=== PATIENT | male | born 1950 | race Caucasian/White ===

== ENCOUNTER 2021-08-09 13:00 | Outpatient (RCR) | payer OTHER ==
[2021-08-06 09:15] VITALS: BP 98/68; PULSE 52; TEMP 97.8
--- NOTE | 2021-08-06 12:30 | NUR ---
INT DC'd, site wrapped with coban. Pt assisted out to 's car by wheelchair.
--- NOTE | 2021-08-06 13:50 | NUR ---
Photocopy Operator Lauren notified that blood bank testing required further workup due to reactivity shown during T/C. Additional blood was drawn to be sent to [place] for further workup. Blood bank will notify HS if blood comes in this weekend so pt may be brought in to recieve blood transfusion on medical unit.
--- NOTE | 2021-08-08 08:28 | NUR ---
Attempted to contact patient this morning to have come for transfusion. Patient's number, , doesn't answer and unable to leave voicemail. Attempted to call number listed for , , and this is an incorrect number. But, the gentleman who answered knows the patient and said he's gotten numerous calls from this weekend for patient and . States if he's out and about today, he will stop and check on patient.
[2021-08-09] VITALS (9 sets, daily range): BP systolic 90–119; BP diastolic 60–88; PULSE 75–87; TEMP 97.5–98.9
[~2021-08-09] VITALS: Ht 170.2 cm; Wt 64.3 kg
[~2021-08-09 13:00] MED LIST: ASPIRIN E.C. 8181 MG PO; CHOLESTEROL MED; COREG 25MG25 MG/TAB PO; ENSURE PLUS 23237 ML PO; FLOMAX 0.40.4 MG/CAP PO; K-DUR20 MEQ PO; LIPITOR 80MG80 MG PO; MAGNESIUM200 MG PO; OSCAL 500 TAB500 MG PO; PRINIVIL20 MG PO; PROTONIX 40MG T40 MG PO; ULTRAM 50MG TAB50 MG PO; VITAMIN D31000 I1 PO; blood pressure med
--- NOTE | 2021-08-09 18:36 | NUR ---
Report to Ambar Gibbs.
== END 2021-08-09 18:41 ==
LOC: EUO 13:00
DX: D53.9 Nutritional anemia, unspecified (principal)
CPT/HCPCS: J7050; P9016

== ENCOUNTER 2021-08-31 16:37 | Inpatient (IN) | payer OTHER ==
[~2021-08-31] VITALS: Ht 170.2 cm; Wt 58.2 kg
[~2021-08-31 16:37] MED LIST changes: +MAG-OX 400400 MG/TAB PO; -MAGNESIUM200 MG PO
[2021-08-31 18:19] LABS: MEAN CELL VOLUME 96 fl (80.0-100.0); MEAN CORPUSCULAR HGB CONC 34 g/dl (33.0-37.0); MEAN PLATELET VOLUME 10.7 fl (7.4-10.4); PLATELET COUNT 294 K/mm3 (130-400); RED BLOOD COUNT 2.37 M/mm3 (4.20-5.60); REDCELL DISTRIBUTION WIDTH-CV 20.1 % (11.5-14.5)
[2021-08-31 18:20] LABS: HEMATOCRIT 22.8 % (42.0-52.0); HEMOGLOBIN 7.8 g/dl (13.5-18.0); MEAN CORPUSCULAR HEMOGLOBIN 33 pg (27-31)
[2021-08-31 18:40] LABS: ALBUMIN 3.2 gm/dL (3.4-4.8); C-REACTIVE PROTEIN 21.38 mg/dL (0.00-0.50); CALCIUM 8.9 mg/dL (8.4-10.2); CREATININE, serum 2.15 mg/dL (0.72-1.25); TOTAL PROTEIN 7.6 gm/dL (6.2-8.1)
[2021-08-31 18:55] LABS: POTASSIUM 2.9 mmol/L (3.5-4.5)
[2021-08-31 19:34] LABS: ANISOCYTOSIS 3+; BAND 26 % (0-10); HYPOCHROMIA 1+; LYMPHOCYTE 25 % (20.0-51.0); NEUTROPHILS 41 % (42.0-75.2); OVALOCYTES 1+; PLATELET ESTIMATE NORMAL (NORMAL)
[2021-09-01] VITALS (21 sets, daily range): BP systolic 79–145; BP diastolic 50–74; PULSE 73–100; TEMP 97.6–98.4
--- NOTE | 2021-09-01 01:00 | NUR ---
Admitted to medical floor from ER- DX: N/V/D, weakness, fatigue-- history of prostate/bone CA,, had first dose of chemotherapy on 08/25/21, pale, weak, B/P 95/62, Tele on, understands needs urine/stool specimens, on C.L diet.
[2021-09-01 03:26] LABS: BASO # 0.1 K/mm3 (0.0-0.2); BASO % 0.8 % (0.0-2.0); EOS # 0.1 K/mm3 (0.0-0.7); EOS % 1.3 % (0.0-4.0); GRAN # 5.4 K/mm3 (1.4-6.5); GRAN % 70.6 % (42.2-75.2); LYMPH # 0.4 K/mm3 (1.2-3.4); LYMPH % 4.9 % (20.0-51.0); MEAN CELL VOLUME 98 fl (80.0-100.0); MEAN CORPUSCULAR HGB CONC 34 g/dl (33.0-37.0); MONO # 1.5 K/mm3 (0.1-0.6); MONO % 19.8 % (1.7-9.3); PLATELET COUNT 264 K/mm3 (130-400); REDCELL DISTRIBUTION WIDTH-CV 20.7 % (11.5-14.5)
[2021-09-01 03:30] LABS: HEMATOCRIT 18.6 % (42.0-52.0); HEMOGLOBIN 6.3 g/dl (13.5-18.0); MEAN CORPUSCULAR HEMOGLOBIN 33 pg (27-31)
[2021-09-01 03:42] LABS: ALBUMIN 2.7 gm/dL (3.4-4.8); ALKALINE PHOSPHATASE 93 U/L (40-150); ANION GAP 16 mmol/L (7-16); AST,SGOT 9 U/L (5-34); BILIRUBIN,TOTAL 0.8 mg/dL (0.2-1.2); BLOOD UREA NITROGEN 57 mg/dL (8-26); CALCIUM 7.9 mg/dL (8.4-10.2); CARBON DIOXIDE 15 mmol/L (23-31); CHLORIDE 105 mmol/L (98-107); CHOLESTEROL 147 mg/dL (0-199); CHOLESTEROL RISK RATIO 3.6; CREATININE, serum 1.98 mg/dL (0.72-1.25); GLUCOSE 109 mg/dL (70-99); HDL CHOLESTEROL 40 mg/dL (40-60); LDL CHOLESTEROL 84 mg/dL; SODIUM 136 mmol/L (136-145); TOTAL PROTEIN 6.4 gm/dL (6.2-8.1); TRIGLYCERIDE 114 mg/dL (0-149)
[2021-09-01 03:44] LABS: ALANINE AMINOTRANSFERASE < 6 U/L (0-55); POTASSIUM 2.9 mmol/L (3.5-4.5)
[2021-09-01 03:52] LABS: BAND 46 % (0-10); LYMPHOCYTE 12 % (20.0-51.0); METAMYELOCYTE 3 % (0-0); NEUTROPHILS 28 % (42.0-75.2)
[2021-09-01 03:53] LABS: ANISOCYTOSIS 2+; PLATELET ESTIMATE NORMAL (NORMAL); SCHISTOCYTES 1+
[2021-09-01 03:54] LABS: TROPONIN-I 6 HR POST INITIAL 0.044 ng/mL (0.00-0.033)
--- NOTE | 2021-09-01 04:10 | NUR ---
CHUCHO SCHMITZ was called with potassium and hgb results0 order to do potassium protocol and give 2 units PRBC,s- pt has been resting,VSS
--- NOTE | 2021-09-01 04:30 | NUR ---
Informed Eber SCHMITZ that the 2 units of blood need to come from [place]-- [facility] states to order FARHAD, not necessary to do STAT, B/P 102/60
--- NOTE | 2021-09-01 05:52 | NUR ---
Up to bathroom with assist- will get both stool and urine to send to lab, Did sleep for a few hours, REBEKAH, Sammy x1 for nausea, Pharmacy consult in computer-patient states he doesnt know his home meds and [facility]- no PCP in town here- unable to do med rec,,has not been in this hospital he states "for years"
[2021-09-01 06:40] LABS: COLLECTION METHOD CLEAN CATCH
[2021-09-01 07:19] LABS: MUCOUS Present (NOT PRESENT); PH 5 (5-8); SQUAMOUS EPITHELIAL None Seen /hpf (0-10); URINE APPEARANCE Hazy (CLEAR/HAZY); URINE BACTERIA Rare /hpf (NONE SEEN); URINE BLOOD 2+ (NEGATIVE); URINE COLOR Yellow (YELLOW); URINE GLUCOSE Negative (NEGATIVE); URINE KETONE Trace (NEGATIVE); URINE NITRATE Negative (NEGATIVE); URINE PROTEIN(semi-quant) 1+ (NEGATIVE); URINE UROBILINOGEN Negative (NEGATIVE)
[2021-09-01 10:24] LABS: CLOSTRIDIUM DIFF A/B NEG; CLOSTRIDIUM DIFF A/B INTERP No C.diff present
--- NOTE | 2021-09-01 11:31 | NUR ---
SW met with patient to complete intake and discuss discharge plan. Patient states that he lives at home with his Hawa ([phone]) in [place]. Patient has been independent with his ADL's and does not normally utilize any DME to assist with mobility. Patient does not utilize oxygen at home. PCP is the [facility] and he is on the Red team. He has started seening Dr. Villareal for his cancer treatments and his first chemo treatment was on 08/24. [facility]. Patient reportst that he does not have a DPOA-HC established and due to his current condition he is not interested in creating one at this time. Patient is planning on returning home once medically ready.PT and OT ordered and are awaiting eval. Discharge plan: Home (pending PT/OT eval)
--- NOTE | 2021-09-01 15:39 | NUR ---
Consent for blood transfusion recieved. Pre procedure vitals obtained. VSS. Blood transufsion started at 60 ml/hr. Patient tolerating well.
[2021-09-01] MEDS ORDERED: TYLENOL 500MG500 MG PO (16:32)
--- NOTE | 2021-09-01 18:45 | NUR ---
THE PATIENT HAS BLOOD RUNNING AT THIS TIME. THERE WAS A DISTAL OCCLUSION THAT DIPTI JACOB THOUGHT THE IV MAY HAVE BEEN BAD. THIS RN FLUSHED THE IV AND THE BLOOD CONTINUED TO RUN. NO CONCERNS. BLOOD IS PLANNED TO BE FINISHED AT 193 WITH A SECOND UNIT TO START AFTER. WILL RETURN TO MONITOR.
--- NOTE | 2021-09-01 19:00 | NUR ---
REPORT HAS BEEN GIVEN TO HOWARD RESENDEZ. PT RESTING IN BED WITH EYES, HAS SLEPT MOST OF DAY, FAMILY HAS BEEN PRESENT INTERMITTENTLY. PT HAS BEEN NAUSEOUS INTERMITTENTLY WHEN AWAKE. PT STATES THAT PHENERGAN IV ADMINISTRATION DID HELP NAUSEA, HAS DENIED ANY PAIN. PT HAS HAD MULTIPLE LIQUID/LOOSE STOOLS TODAY, AMBULATES TO BR WITH SBA, IS WEAK. BLOOD INFUSING @ 120 ML/HR INTO RIGHT AC IV, POTASSIUM INFUSING INTO LEFT WRIST. AIV NURSE HAS BEEN NOTIFIED OF PICC PLACEMENT ORDER, HAD STATED THAT IT WOULD BE INSERTED IN AM.
[2021-09-02] VITALS (8 sets, daily range): BP systolic 81–106; BP diastolic 47–66; PULSE 71–86; TEMP 97.4–98.3
[2021-09-02 02:19] LABS: HEMATOCRIT 25.3 % (42.0-52.0); HEMOGLOBIN 8.4 g/dl (13.5-18.0)
[2021-09-02 07:09] LABS: ALBUMIN 2.4 gm/dL (3.4-4.8); BILIRUBIN,TOTAL 1.8 mg/dL (0.2-1.2); CREATININE, serum 1.97 mg/dL (0.72-1.25); POTASSIUM 3.9 mmol/L (3.5-4.5); TOTAL PROTEIN 5.7 gm/dL (6.2-8.1)
[2021-09-02 07:19] LABS: BASO # 0.1 K/mm3 (0.0-0.2); BASO % 0.5 % (0.0-2.0); EOS # 0.1 K/mm3 (0.0-0.7); EOS % 1.1 % (0.0-4.0); GRAN # 9.4 K/mm3 (1.4-6.5); GRAN % 75.6 % (42.2-75.2); LYMPH # 0.4 K/mm3 (1.2-3.4); LYMPH % 3.4 % (20.0-51.0); MEAN CELL VOLUME 94 fl (80.0-100.0); MEAN CORPUSCULAR HGB CONC 34 g/dl (33.0-37.0); MONO # 1.7 K/mm3 (0.1-0.6); MONO % 13.3 % (1.7-9.3); PLATELET COUNT 207 K/mm3 (130-400); RED BLOOD COUNT 2.82 M/mm3 (4.20-5.60); REDCELL DISTRIBUTION WIDTH-CV 18.8 % (11.5-14.5)
[2021-09-02 07:20] LABS: HEMATOCRIT 26.4 % (42.0-52.0); HEMOGLOBIN 8.9 g/dl (13.5-18.0); MEAN CORPUSCULAR HEMOGLOBIN 32 pg (27-31)
--- NOTE | 2021-09-02 07:46 | NUR ---
CRITICAL CO2 10 REPORTED TO RAMANA SCHMITZ.
--- NOTE | 2021-09-02 09:05 | NUR ---
PT SETTING UP TO TAKE AM MEDS. ECHO DONE THIS AM, PICC LINE BEING PLACED, AND CT SCAN WILL BE UP LATER THIS AM. POTASSIUM BEING REPLACED. CO2 CALLED THIS AM, NO NEW ORDERS. CONT TO HAVE SOME NAUSEA, NO VOMITING THIS AM. HEMO STABLE AT 8.9. POC DISCUSSED.
--- NOTE | 2021-09-02 11:54 | NUR ---
Received notification of consult from DELFINA Zacarias. Attended multidisciplinary rounds then introduced myself to family. Offered to answer any questions and be a resource to them. SW present for conversation as well.
--- NOTE | 2021-09-02 11:55 | NUR ---
Verified with Dr. Villareal's office that patient received Taxitere (docetaxel) on 08/25. Chemo precautions are to be followed for 3 days following administration so patient is not under any precautions at this time. Care team notified.
--- NOTE | 2021-09-02 14:53 | NUR ---
PT SLEEPING W EYES CLOSED, RESP EVEN AND UNLABORED. FAMILY AT BEDSIDE.
--- NOTE | 2021-09-02 15:17 | NUR ---
DELFINA attended rounding with MD and palliative care RN Una. Patient's Hawa ([phone]) present along with other family members. After rounding Una and myself introduced ourselves and the roles we play as apart of the care team. At this time the family has no questions for either the MD or us. Patient has no questions at this time. Explained the possible need for post acute rehab and what that might look like post discharge. Encouraged the family to reach out to either Una or myself for questions.
--- NOTE | 2021-09-02 20:30 | NUR ---
Initial shift assessment done- up to bathroom with assist- had small amount diarrhea , not time for more immodium yet, lots of company/family visiting today- all gone home now, pt states a little abd pain but not needing pain meds- just wants to sleep,, IV fluids to PICC NS w/20KCL at 100cc/hr.Tele on NSR,
[2021-09-03 04:25] VITALS: BP 113/63; PULSE 86; TEMP 97.5
--- NOTE | 2021-09-03 04:46 | NUR ---
Has been up to bathroom for diarrhea x 3--immodium was given, did sleep 3-4 hours, VSS.
[2021-09-03 06:38] LABS: MEAN CELL VOLUME 94 fl (80.0-100.0); MEAN CORPUSCULAR HGB CONC 34 g/dl (33.0-37.0); MEAN PLATELET VOLUME 10.8 fl (7.4-10.4); PLATELET COUNT 192 K/mm3 (130-400); REDCELL DISTRIBUTION WIDTH-CV 20.5 % (11.5-14.5)
[2021-09-03 06:44] LABS: HEMATOCRIT 24.4 % (42.0-52.0); HEMOGLOBIN 8.2 g/dl (13.5-18.0); MEAN CORPUSCULAR HEMOGLOBIN 32 pg (27-31)
[2021-09-03 07:01] LABS: ALBUMIN 2.3 gm/dL (3.4-4.8); ALKALINE PHOSPHATASE 128 U/L (40-150); ANION GAP 11 mmol/L (7-16); AST,SGOT 10 U/L (5-34); BILIRUBIN,TOTAL 0.6 mg/dL (0.2-1.2); BLOOD UREA NITROGEN 45 mg/dL (8-26); CALCIUM 8.1 mg/dL (8.4-10.2); CHLORIDE 119 mmol/L (98-107); CREATININE, serum 1.78 mg/dL (0.72-1.25); GLUCOSE 73 mg/dL (70-99); MAGNESIUM 1.8 mg/dL (1.6-2.6); POTASSIUM 3.7 mmol/L (3.5-4.5); SODIUM 138 mmol/L (136-145); TOTAL PROTEIN 5.3 gm/dL (6.2-8.1)
[2021-09-03 07:02] LABS: ALANINE AMINOTRANSFERASE < 6 U/L (0-55)
[2021-09-03 07:04] LABS: CARBON DIOXIDE 8 mmol/L (23-31)
[2021-09-03 07:26] VITALS: BP 104/67; PULSE 85; TEMP 97.8
[2021-09-03 07:39] LABS: BAND 31 % (0-10); BURR CELLS 2+; LYMPHOCYTE 4 % (20.0-51.0); NEUTROPHILS 60 % (42.0-75.2); NUCLEATED RED BLOOD CELL 1 (0-6); PLATELET ESTIMATE NORMAL (NORMAL); POIKILOCYTOSIS 2+
[2021-09-03 07:40] LABS: ANISOCYTOSIS 2+; HYPOCHROMIA 1+; OVALOCYTES 1+
[2021-09-03 07:41] LABS: MICROCYTOSIS 1+
--- NOTE | 2021-09-03 10:41 | NUR ---
PT REMAINS WEAK AND TIRED. SOME NAUSEA NO VOMITING, DIARHEA CONT. DENIES PAIN OR SOA. AM MEDS GIVEN HAVING A HARD TIME SWALLOWING ALL PILLS WITHOUT NAUSEA. K REYES, CATHERINE. POC DISCUSSED. FAMILY AT BEDSIDE.
[2021-09-03 11:47] VITALS: BP 106/65; PULSE 77; TEMP 97.5
--- NOTE | 2021-09-03 13:23 | NUR ---
Attended rounds. Patient's son, Kian at bedside. Patient made comments that if he feels like this with every round of chemo, he doesn't want to do this. Also mentioned that he forgot to ask Dr. Villareal if there is any chemo that isn't as strong they could try instead. Patient unable to tell us if the chemo/treatment plan is palliative or curative. Agreed to allow son to talk with Dr. Villareal. Call made to Dr. Villareal's office, requesting he call Kian #[phone]. Also updated family in waiting room; questions answered. Family most concerned with patient's decreased appetite and asked if there was any nutrition or medication to help his appetite that could be given. Relayed question to care team.
--- NOTE | 2021-09-03 15:26 | NUR ---
IV FLUIDS TO LR PER ORDER. PT DID TOLERATE ICE CREAM AND A BITE OF PEREZ. SIPPING ON WATER AND SPRITE. FAMILY REMAINS AT BEDSIDE.
[2021-09-03 16:07] VITALS: BP 110/63; PULSE 83; TEMP 97.7
--- NOTE | 2021-09-03 16:49 | NUR ---
SW and palliative care RN stopped by to check in with family. This SW stressed the importance of working with PT for an evaluation in case he was in need of any resources. Patient is agreeable to working with PT. Palliative Care Rn attempted to discuss code status with the patient. Patient's family present at bedside. Una RESENDEZ explaines that a full code would mean, CPR, ventilator, chest compressions etc. Patient responds with "yea, we can try that". Patient's family verbalized no insight. Family asked if they have any questions thus far which they all replied "no". Patient was seen working with PT later in the day.
--- NOTE | 2021-09-03 18:30 | NUR ---
PT IS LAYING IN BED AT THIS TIME WITH THE LIGHTS OFF. INFORMED PATIENT THAT I WOULD RETURN TO GIVE MEDICATIONS AND DO AN ASSESSMENT. NO OTHER CONCERNS AT THIS TIME.
[2021-09-03 19:29] VITALS: BP 113/74; PULSE 84
[2021-09-03 23:57] VITALS: BP 112/62; PULSE 79; TEMP 97.6
[2021-09-04 05:02] VITALS: BP 109/70; PULSE 67; TEMP 98
--- NOTE | 2021-09-04 07:00 | NUR ---
PT HAD UNEVENTFUL NIGHT. SLEPT WELL. DENIES PAIN. MEDICATIONS GIVEN PER MAR. NO CONCERNS. REPORT GIVEN TO DAY SHIFT RN.
[2021-09-04 07:38] LABS: MEAN CELL VOLUME 94 fl (80.0-100.0); MEAN CORPUSCULAR HGB CONC 34 g/dl (33.0-37.0); MEAN PLATELET VOLUME 10.8 fl (7.4-10.4); PLATELET COUNT 156 K/mm3 (130-400); REDCELL DISTRIBUTION WIDTH-CV 20.2 % (11.5-14.5)
[2021-09-04 07:50] VITALS: BP 99/64; PULSE 79; TEMP 98.1
[2021-09-04 07:50] LABS: HEMATOCRIT 22.6 % (42.0-52.0); HEMOGLOBIN 7.6 g/dl (13.5-18.0); MEAN CORPUSCULAR HEMOGLOBIN 32 pg (27-31)
[2021-09-04 08:02] LABS: ALANINE AMINOTRANSFERASE < 6 U/L (0-55); ALBUMIN 2.1 gm/dL (3.4-4.8); ALKALINE PHOSPHATASE 87 U/L (40-150); ANION GAP 10 mmol/L (7-16); AST,SGOT 11 U/L (5-34); BILIRUBIN,TOTAL 0.5 mg/dL (0.2-1.2); BLOOD UREA NITROGEN 34 mg/dL (8-26); CALCIUM 7.6 mg/dL (8.4-10.2); CHLORIDE 116 mmol/L (98-107); GLUCOSE 88 mg/dL (70-99); MAGNESIUM 1.5 mg/dL (1.6-2.6); SODIUM 135 mmol/L (136-145); TOTAL PROTEIN 4.9 gm/dL (6.2-8.1)
[2021-09-04 08:05] LABS: CARBON DIOXIDE 9 mmol/L (23-31); POTASSIUM 2.9 mmol/L (3.5-4.5)
--- NOTE | 2021-09-04 08:10 | NUR ---
CRITICAL LABS- CO2 9 AND POTASIUM OF 2.9 REPORTED, K PROTOCOL USED AND WILL ORDER SODIUM BICARB.
[2021-09-04 08:43] LABS: LYMPHOCYTE 3 % (20.0-51.0); PLATELET ESTIMATE NORMAL (NORMAL)
[2021-09-04 08:44] LABS: ANISOCYTOSIS 2+
[2021-09-04 08:45] LABS: BAND 6 % (0-10); NEUTROPHILS 84 % (42.0-75.2)
[2021-09-04 08:48] LABS: OVALOCYTES 1+
[2021-09-04 11:48] VITALS: BP 98/68; PULSE 86; TEMP 97.9
[2021-09-04 15:48] VITALS: BP 97/53; PULSE 89; TEMP 98.4
[2021-09-04 20:37] VITALS: BP 106/66; PULSE 77; TEMP 98.6
[2021-09-05 04:30] VITALS: BP 118/66; PULSE 84; TEMP 98.1
[2021-09-05 07:38] LABS: MEAN CELL VOLUME 95 fl (80.0-100.0); MEAN CORPUSCULAR HGB CONC 34 g/dl (33.0-37.0); MEAN PLATELET VOLUME 10.8 fl (7.4-10.4); PLATELET COUNT 125 K/mm3 (130-400); RED BLOOD COUNT 2.23 M/mm3 (4.20-5.60); REDCELL DISTRIBUTION WIDTH-CV 20.6 % (11.5-14.5)
[2021-09-05 07:47] LABS: HEMATOCRIT 21.1 % (42.0-52.0); HEMOGLOBIN 7.1 g/dl (13.5-18.0); MEAN CORPUSCULAR HEMOGLOBIN 32 pg (27-31)
[2021-09-05 07:51] LABS: CALCIUM 7.4 mg/dL (8.4-10.2); CREATININE, serum 2.05 mg/dL (0.72-1.25); POTASSIUM 3.5 mmol/L (3.5-4.5)
[2021-09-05 08:35] VITALS: BP 99/65; PULSE 86; TEMP 98
[2021-09-05 08:46] LABS: BAND 2 % (0-10); LYMPHOCYTE 5 % (20.0-51.0); NEUTROPHILS 87 % (42.0-75.2); NUCLEATED RED BLOOD CELL 1 (0-6)
[2021-09-05 08:47] LABS: ANISOCYTOSIS 2+; OVALOCYTES 1+; PLATELET ESTIMATE DECREASED (NORMAL)
[2021-09-05 08:48] LABS: BURR CELLS 1+
[2021-09-05 11:20] VITALS: BP 88/50; PULSE 86; TEMP 98
--- NOTE | 2021-09-05 14:35 | NUR ---
DR INFORMED OF PATIETN LOW BP, ORDERED TO INCCREASE LR TO 100CC/HR
[2021-09-05 15:25] VITALS: BP 95/65; PULSE 83; TEMP 98.5
[2021-09-05 20:28] VITALS: BP 97/63; PULSE 82; TEMP 97.4
--- NOTE | 2021-09-05 20:30 | NUR ---
Initial shift assessment done- denies pain at this time, has been resting, still drowsy-wants to go back to sleep- does not want his pills tonight- states hes doing pretty good so far and does not want to start the nausea tonight-did eat some broth today, Tele on, PICC to WILL POWELL at 100cc/hr, states not much diarrhea today -- understands to call for assistance-
[2021-09-05 23:47] LABS: CREATININE, serum 2.2 mg/dL (0.72-1.25)
[2021-09-05 23:49] LABS: FRACTIONAL EXCRETION OF NA+ 1.12 %
[2021-09-06] VITALS (14 sets, daily range): BP systolic 88–107; BP diastolic 50–73; PULSE 69–80; TEMP 97.7–98.5
--- NOTE | 2021-09-06 05:53 | NUR ---
States he is feeling better this morning-- did drink a carton of milk during the night- now requesting a can of pepsi, did get up to bathroom x3 last night- voiding good amounts, only very scant liquid stool x1,, IV fluids of LR at 100cc/hr. Did send down the urine specimen and anish blood from PICC for the FENA that was ordered.
[2021-09-06 07:17] LABS: POTASSIUM 4.8 mmol/L (3.5-4.5)
--- NOTE | 2021-09-06 11:06 | NUR ---
Phone call made to Tran at the [facility] ([phone]) to give a status update.
[2021-09-06 11:54] LABS: CALCIUM 7.4 mg/dL (8.4-10.2); CREATININE, serum 2.25 mg/dL (0.72-1.25)
--- NOTE | 2021-09-06 13:14 | NUR ---
CALLED BLOOD BANK TO CHECK ON PRBC ARIVAL. THEY STATED THEY WERE UUNABLE TO ACCEPT THE BLOOD THAT ARRIVED THIS MORNING, AND HAD TO RE-ORDER, PLACED STAT. HE WILL CALL ME LATER WITH AN UPDATE ON WHEN IT WILL ARRIVE. DISTRIBUTION TRANSFORMER ASSEMBLER AWARE AND NOTIFIED PHSYICIAN.
[2021-09-06 13:50] LABS: HEMATOCRIT 18.9 % (42.0-52.0)
[2021-09-06 13:58] LABS: HEMOGLOBIN 6.4 g/dl (13.5-18.0)
--- NOTE | 2021-09-06 14:49 | NUR ---
vamp cut out worker met with patient after working with PT. Discussed with patient about his options for going home. His children are unable to be with him 24/7 and his is unable to care for him if he was to fall. Patient verbalized to this SW that he does not feel like he is able to go home at this time and would like to look into SNF options. Patient's fisrt preference is [facility] and his second preference is [facility]. Patient is understanding that his chemo treatments would be placed on hold until he was done with therapy. SNF referrals faxed to : [facility] and [facility]
--- NOTE | 2021-09-06 19:28 | NUR ---
REPORT GIVEN TO NIGHT NURSE @ 183 THAT PATIENTS BLOOD TRANSFUSION IS STILL RUNNING, AND WAS STARTED AT 1814. PATIETNT REPORTS NO SYMPTOMS OF A REACTION.
[2021-09-06 22:05] LABS: HEMATOCRIT 23.6 % (42.0-52.0); HEMOGLOBIN 7.8 g/dl (13.5-18.0)
[2021-09-07] VITALS (11 sets, daily range): BP systolic 11–117; BP diastolic 58–74; PULSE 63–78; TEMP 97.5–98.8
[2021-09-07] MEDS ORDERED: SODIUM BICARBO650 MG PO (08:06)
[2021-09-07] MEDS ORDERED: CARAFATE S1 GM/10 ML PO (08:07)
[2021-09-07] MEDS ORDERED: ZOFRAN 4MG T4 MG/TAB PO (08:09)
[2021-09-07] MEDS ORDERED: FERRO-TIME325 MG PO (08:09)
[2021-09-07 08:37] LABS: MEAN CELL VOLUME 92 fl (80.0-100.0); MEAN CORPUSCULAR HGB CONC 34 g/dl (33.0-37.0); MEAN PLATELET VOLUME 11.9 fl (7.4-10.4); PLATELET COUNT 102 K/mm3 (130-400); RED BLOOD COUNT 2.51 M/mm3 (4.20-5.60); REDCELL DISTRIBUTION WIDTH-CV 19.9 % (11.5-14.5)
[2021-09-07 08:39] LABS: HEMOGLOBIN 7.8 g/dl (13.5-18.0); MEAN CORPUSCULAR HEMOGLOBIN 31 pg (27-31)
[2021-09-07 08:54] LABS: ALBUMIN 2.1 gm/dL (3.4-4.8); BILIRUBIN,TOTAL 0.4 mg/dL (0.2-1.2); CALCIUM 7.5 mg/dL (8.4-10.2); CREATININE, serum 2.2 mg/dL (0.72-1.25); POTASSIUM 4.6 mmol/L (3.5-4.5); TOTAL PROTEIN 4.8 gm/dL (6.2-8.1)
[2021-09-07] MEDS ORDERED: DECADRON 1MG TAB1 MG PO (09:05)
[2021-09-07 09:30] LABS: BAND 6 % (0-10); LYMPHOCYTE 5 % (20.0-51.0); METAMYELOCYTE 2 % (0-0); NEUTROPHILS 84 % (42.0-75.2); PLATELET ESTIMATE DECREASED (NORMAL)
--- NOTE | 2021-09-07 13:53 | NUR ---
Mar with [facility] called stating that their agency is not in network with the [facility]. Patient's Medicare card faxed to Mar. Patrice with [facility] called stating that they are not able to accept this patient as their clinical team feels as if the patient is more hospice appropriate. Informed her that through the conversations with the patient and family, they have not wanted hospice at this time. Patrice states that even with this, they would not be able to bring the patient in under his MCR.A and he would be private pay. Ruben with [facility] contacted and states that there facility does contract with the [facility]. Patients clinical information faxed to Ruben.
[2021-09-07 16:11] LABS: HEMATOCRIT 25.7 % (42.0-52.0); HEMOGLOBIN 8.8 g/dl (13.5-18.0)
--- NOTE | 2021-09-07 18:30 | NUR ---
PT IS AWAKE AND IN BED, DURING BEDSIDE SHIFT REPORT. WHEN ASKING ABOUT THE PATIENT'S RESOLVED NAUSEA HE STATES HE FEELS MUCH BETTER, SO THIS RN ASKED WHY HIS ISN'T TAKING HIS PO MEDS AND HE STATES "BECAUSE I DON'T LIKE THEM". THIS RN TOLD HIM HE NEEDED TO TAKE HIS MEDICATIONS, HE STATES HE "FEELS LIKE THEY ARE TOO BIG TO TAKE." THIS RN TOLD HIM THAT WE WOULD BRING HIS MEDICATIONS IN AND HE COULD TAKE THE ONES HE FELT HE COULD. NO OTHER CONCERNS AT THIS TIME.
[2021-09-08 04:00] VITALS: BP 109/71; PULSE 72; TEMP 97.9
--- NOTE | 2021-09-08 06:11 | NUR ---
The pt had uneentful night. He was able to get up and ambulate to the bathroom with minimal assistance. The patient continues to refuse medications as they make him gag and he feels like throwing up. Pt po intake has slightly improved. The patient denies pain or discomfort. No other concerns, will report to day shift RN.
[2021-09-08 07:20] VITALS: BP 115/69; PULSE 70; TEMP 98.4
--- NOTE | 2021-09-08 10:22 | NUR ---
Follow-up visit; Patient thanked Hot Press Operator for looking in on him and states he is about the same but appreciates Hot Press Operator keeping him in her prayers.
[2021-09-08 10:35] LABS: MEAN CELL VOLUME 92 fl (80.0-100.0); MEAN CORPUSCULAR HGB CONC 34 g/dl (33.0-37.0); MEAN PLATELET VOLUME 12.2 fl (7.4-10.4); PLATELET COUNT 117 K/mm3 (130-400); RED BLOOD COUNT 2.89 M/mm3 (4.20-5.60); REDCELL DISTRIBUTION WIDTH-CV 19.5 % (11.5-14.5)
[2021-09-08 10:43] LABS: ALBUMIN 2.2 gm/dL (3.4-4.8); BILIRUBIN,TOTAL 0.4 mg/dL (0.2-1.2); CALCIUM 7.7 mg/dL (8.4-10.2); CREATININE, serum 2.28 mg/dL (0.72-1.25); MAGNESIUM 1.3 mg/dL (1.6-2.6); POTASSIUM 4.6 mmol/L (3.5-4.5); TOTAL PROTEIN 4.9 gm/dL (6.2-8.1)
[2021-09-08 10:48] LABS: HEMATOCRIT 26.6 % (42.0-52.0); MEAN CORPUSCULAR HEMOGLOBIN 31 pg (27-31)
[2021-09-08 12:00] VITALS: BP 107/53; PULSE 77
[2021-09-08 12:00] LABS: BAND 13 % (0-10); LYMPHOCYTE 5 % (20.0-51.0); NEUTROPHILS 78 % (42.0-75.2); PLATELET ESTIMATE DECREASED (NORMAL)
--- NOTE | 2021-09-08 13:58 | NUR ---
PATIENT RESTING IN BED. NO COMPLAINTS OF PAIN. PATIENT HAS INCREASING DIFFICULTY WITH SIT TO STAND. 1-2 MAX ASSIST. USES WALKER TO ABULATE TO BATHROOM. CONTINENT OF BOWEL AND BLADDER. SKIN INTACT. EXTREMITIES COOL. SOME YELLOWING NOTED ON EXTERMITIES. OTHERWISE PALE. PATIENT TOOK SOME MEDS WHOLE, OTHER MEDS CRUSHED IN PUDDING.
[2021-09-08 16:00] VITALS: BP 116/72; PULSE 66
--- NOTE | 2021-09-08 18:01 | NUR ---
PATIENT RESTING IN BED TODAY. INCREASED APPITETE. ALL MEALS EATEN, WITH INCREASED IN ORDERED MEALS. PATIENT AMBULATES WITH STANDY BY ASSIST WITH A WALKER TO BATHROOM, HOWEVER IS A 1-2 ASSIST FOR SIT TO STAND. PATIENT HAS HAD NO BOWEL MOVEMENT TODAY. NO COMPLAINTS OF PAIN. PATIENT HAS TAKEN MEDS TODAY, EITHER CRUSHED AND IN PUDDING OR CUT INTO SMALLER PIECES AND SWALLOWED WITH WATER. PATIENT HAS HAD NO SIGNIFICANT EVENTS TODAY. PATIENT HAS INCREASED ENERGY, DECREASED NAUSEA AND NO VOMITING OR LOOSE BOWEL MOVEMENTS.
[2021-09-08 20:21] VITALS: BP 122/72; PULSE 71; TEMP 99
[2021-09-08 23:36] VITALS: BP 125/70; PULSE 66; TEMP 98.4
[2021-09-09 04:38] VITALS: BP 114/70; PULSE 64; TEMP 97.8
[2021-09-09 07:58] LABS: CALCIUM 7.5 mg/dL (8.4-10.2); CREATININE, serum 2.31 mg/dL (0.72-1.25); POTASSIUM 4.9 mmol/L (3.5-4.5)
[2021-09-09 08:04] VITALS: BP 119/66; PULSE 64; TEMP 97.6
--- NOTE | 2021-09-09 11:04 | NUR ---
DELFINA contacted Ruben at [facility] to follow up on the referral. Ruben reports that the patient is on very expensive meds and they would not be able to skill him for long. If the patient can private pay, they could look at him for hospice. DELFINA inquired if they can accept him, if patient not on the expensive meds. Ruben states that the two meds are Taxotere and Neulasta and he asked when the patient's next dose of those would be. DELFINA staffed with the pharmacist. The patient has not been on those two meds while here. They are meds that Dr. Villareal prescribed. DELFINA contacted Dr. Villareal's RN, Yvonne, to follow up about the two meds. Yvonne reports that they would hold off on these meds while the patient was at SNF. DELFINA updated Ruben at [facility].
[2021-09-09 11:28] VITALS: BP 107/64; PULSE 62; TEMP 98
[2021-09-09 15:35] VITALS: BP 114/75; PULSE 69; TEMP 97.7
--- NOTE | 2021-09-09 16:54 | NUR ---
Patient noted to have white patches on tongue/gums. Dr Johnson notified and new orders received.
[2021-09-09 19:49] VITALS: BP 109/60; PULSE 65; TEMP 98.3
[2021-09-10 01:00] VITALS: BP 133/74; PULSE 70; TEMP 99
[2021-09-10 04:41] VITALS: BP 130/75; PULSE 71; TEMP 98.5
--- NOTE | 2021-09-10 07:00 | NUR ---
The patient has had an uneventful night. Denies any pain, or discomfort. The patient has been ambulating well with minimal assistance. He has been taking his medications crushed in pudding and does very well with that. He has Nystatin swish and swallow that he has ordered for Thr[place]. He does not have any questions or concerns for the plans. Report was given to DIPTI Byers.
[2021-09-10 07:39] VITALS: BP 119/73; PULSE 78; TEMP 97.9
--- NOTE | 2021-09-10 08:00 | NUR ---
Assessment complete. A&Ox4. Denies pain/nausea/shortness of breath. VS remain stable. PICC to right upper arm flushes well with good blood return. Taking pills crushed in pudding well. Plan of care discussed for this shift to include meds/VS/calling for questions/concerns. Verbalizes understanding. Call light in reach. Will monitor.
[2021-09-10 11:30] VITALS: BP 123/70; PULSE 75; TEMP 98
--- NOTE | 2021-09-10 15:08 | NUR ---
Pharmacy notified of new IV fluid order.
[2021-09-10 15:45] VITALS: BP 107/68; PULSE 73; TEMP 99.1
--- NOTE | 2021-09-10 16:11 | NUR ---
DELFINA spoke with Ruben at [facility] who states that they would be unable to transport the patient to his blood infusions in [place]. Per Ruben, family can take. DELFINA spoke with family member who are agreeable to take the patient for his blood transfusions. Ruben also states that he has not head anything from the [facility] surrounding a contract for SNF yet. States that one possibility would be, to bring the patient over under his MCR but after his 20 day's he would be private pay. He goes on to state that his team feels like the patient is a more hospice appropriate.
--- NOTE | 2021-09-10 17:50 | NUR ---
Dr Johnson notified of this nurse holding potassium this AM due to level of 4.9.
--- NOTE | 2021-09-10 18:08 | NUR ---
Patient had an uneventful night. Denied pain/nausea/shortness of breath. VS remained stable. Family was at bedside all day to visit. PICC to right upper arm slushes well with good blood return. Denies current needs. Call light in reach. Will monitor.
[2021-09-10 19:51] VITALS: BP 100/53; PULSE 78; TEMP 98.5
[2021-09-11 00:23] VITALS: BP 111/70; PULSE 81; TEMP 97.8
[2021-09-11 05:04] VITALS: BP 120/70; PULSE 70; TEMP 97.7
--- NOTE | 2021-09-11 05:20 | NUR ---
PT HAD A PRETTY UNEVENTFUL NIGHT. PT HAD NO COMPLAINTS, JUST REQUESTED CHOCOLATE MILK. CALL LIGHT WITHIN REACH.
[2021-09-11 07:42] LABS: MEAN CELL VOLUME 91 fl (80.0-100.0); MEAN CORPUSCULAR HGB CONC 34 g/dl (33.0-37.0); MEAN PLATELET VOLUME 11.5 fl (7.4-10.4); PLATELET COUNT 129 K/mm3 (130-400); RED BLOOD COUNT 2.68 M/mm3 (4.20-5.60); REDCELL DISTRIBUTION WIDTH-CV 18.8 % (11.5-14.5)
[2021-09-11 07:43] LABS: HEMATOCRIT 24.4 % (42.0-52.0); HEMOGLOBIN 8.3 g/dl (13.5-18.0); MEAN CORPUSCULAR HEMOGLOBIN 31 pg (27-31)
[2021-09-11 07:47] LABS: CALCIUM 7.6 mg/dL (8.4-10.2); CREATININE, serum 2.11 mg/dL (0.72-1.25); POTASSIUM 4.5 mmol/L (3.5-4.5)
[2021-09-11 08:00] VITALS: BP 103/67; PULSE 76; TEMP 98.3
[2021-09-11 08:10] LABS: BAND 9 % (0-10); EOSINOPHIL 1 % (0-4); LYMPHOCYTE 1 % (20.0-51.0); NEUTROPHILS 83 % (42.0-75.2)
[2021-09-11 08:11] LABS: PLATELET ESTIMATE NORMAL (NORMAL)
--- NOTE | 2021-09-11 11:50 | NUR ---
PATIENT AMBULATING IN ROOM, WITH ASSITANCE OF SON, WITH WALKER. NO COMPLAINTS OF PAIN. MOST MEDS TAKEN CRUSHED AND MIXED IN CHOCLATE PUDDING. THE THREE SMALLEST TAKEN WITH SIPS OF WATER OR MILK. IV SODIUM BICARB INFUSION RUNNING. PATIENT APPETITE IMPROVED, ENERGY IMPROVED. PATIENT HAS +3 TO +4 PITTING EDEMA IN FEET, LEFT SIDE MORE AFFECTED THAN RIGHT. FINE CRACKLES IN GURPREET LUNG BASES. WILL REPORT TO PROVIDER AND CONTINUE TO MONITOR.
[2021-09-11 12:00] VITALS: BP 94/66; PULSE 74
[2021-09-11 16:00] VITALS: BP 117/67; PULSE 76
--- NOTE | 2021-09-11 19:35 | NUR ---
PATIENT HAS INCREASED EDEMA IN LOWER EXTREMITIES. NO DIFFICULTIES OTHERWISE. NO OTHER CHANGE IN PATIENT STATUS. NO COMPLAINTS OF PAIN. PATIENT COMPLIANT WITH ALL MEDS AND INTERVENTIONS. NO SIGNIFICANT EVENTS OR CONCERNS TODAY.
[2021-09-11 21:06] VITALS: BP 93/55; PULSE 79; TEMP 98.7
[2021-09-12 01:14] VITALS: BP 117/56; PULSE 70; TEMP 98.1
--- NOTE | 2021-09-12 05:00 | NUR ---
PT HAVING MORE EDEMA TO HIS RIGHT ARM. PT DENIED PAIN, PALPITATIONS, SOB, N,V,D OR DIZZINESS. WILL CONTINUE TO MONITOR. CALL LIGHT WITHIN REACH.
[2021-09-12 05:03] VITALS: BP 112/67; PULSE 68; TEMP 98.3
[2021-09-12 07:32] LABS: MEAN CELL VOLUME 92 fl (80.0-100.0); MEAN CORPUSCULAR HGB CONC 34 g/dl (33.0-37.0); MEAN PLATELET VOLUME 11.6 fl (7.4-10.4); PLATELET COUNT 145 K/mm3 (130-400); RED BLOOD COUNT 2.72 M/mm3 (4.20-5.60); REDCELL DISTRIBUTION WIDTH-CV 18.8 % (11.5-14.5)
[2021-09-12 07:34] LABS: HEMATOCRIT 25.1 % (42.0-52.0); HEMOGLOBIN 8.5 g/dl (13.5-18.0); MEAN CORPUSCULAR HEMOGLOBIN 31 pg (27-31)
[2021-09-12 07:48] LABS: CALCIUM 7.7 mg/dL (8.4-10.2); CREATININE, serum 1.93 mg/dL (0.72-1.25); POTASSIUM 4.5 mmol/L (3.5-4.5)
[2021-09-12 08:00] VITALS: BP 123/87; PULSE 67; TEMP 97.8
[2021-09-12 08:11] LABS: ANISOCYTOSIS 1+; BAND 5 % (0-10); EOSINOPHIL 2 % (0-4); LYMPHOCYTE 3 % (20.0-51.0); NEUTROPHILS 84 % (42.0-75.2); PLATELET ESTIMATE NORMAL (NORMAL)
--- NOTE | 2021-09-12 11:54 | NUR ---
PATIENT IN RECLINER ON ASSESSMENT. NO COMPLAINTS OF PAIN, SOB OR NAUSEA. PATIENT STATES HE IS MOVING BOWELS, SOFT FORMED AND BROWN. NO DIFFICULTIES. PATIENT TAKES MEDS, CRUSHED IN PUDDING. IV MAG ORDERED AND ADMINISTERED THIS MORNING. PATIENT MORE TIRED THIS AM THEN IN PREVIOUS SHIFT. WILL ASSESS PATIENT SACRUM WHEN FAMILY LEAVES FOR THE DAY, PATIENT IS VERY SELF CONCIOUS OF EXPOSURE.
[2021-09-12 12:00] VITALS: BP 103/59; PULSE 71
[2021-09-12 15:54] VITALS: BP 99/67; PULSE 65
--- NOTE | 2021-09-12 19:26 | NUR ---
PATIENT IN STABLE CONDITION. REPORTS BEING VERY TIRED THIS EVENING. NO SIGNIFICANT EVENTS TODAY. HAD FAMILY VISITORS FOR MAJORITY OF THE DAY. NO COMPLAINTS OF PAIN, OR N/V/D. NO CONCERNS AT THIS TIME.
[2021-09-12 20:00] VITALS: BP 105/66; PULSE 76; TEMP 98.7
[2021-09-13] VITALS (7 sets, daily range): BP systolic 90–118; BP diastolic 57–81; PULSE 71–85; TEMP 97.9–99
--- NOTE | 2021-09-13 06:00 | NUR ---
ASSESSMENT COMPLETE FOR DROP PRESS HAND. PT ABLE TO GET SOME MUCH NEEDED SLEEP. PT DENIED PAIN, PALPITATIONS, SOB, N,V,D OR DIZZINESS. PT HAD AN OTHERWISE, UNEVENTFUL NIGHT. CALL LIGHT WITHIN REACH.
[2021-09-13 07:35] LABS: BASO # 0.1 K/mm3 (0.0-0.2); BASO % 1.3 % (0.0-2.0); EOS # 0.5 K/mm3 (0.0-0.7); EOS % 6.6 % (0.0-4.0); GRAN # 5.4 K/mm3 (1.4-6.5); GRAN % 70.9 % (42.2-75.2); LYMPH # 0.5 K/mm3 (1.2-3.4); LYMPH % 6.4 % (20.0-51.0); MEAN CELL VOLUME 95 fl (80.0-100.0); MEAN CORPUSCULAR HGB CONC 32 g/dl (33.0-37.0); MEAN PLATELET VOLUME 11.6 fl (7.4-10.4); MONO # 1.1 K/mm3 (0.1-0.6); MONO % 13.9 % (1.7-9.3); PLATELET COUNT 171 K/mm3 (130-400); REDCELL DISTRIBUTION WIDTH-CV 18.9 % (11.5-14.5)
[2021-09-13 07:38] LABS: HEMATOCRIT 28.4 % (42.0-52.0); HEMOGLOBIN 9.2 g/dl (13.5-18.0); MEAN CORPUSCULAR HEMOGLOBIN 31 pg (27-31)
[2021-09-13 07:50] LABS: CALCIUM 8.1 mg/dL (8.4-10.2); CREATININE, serum 1.91 mg/dL (0.72-1.25); POTASSIUM 4.6 mmol/L (3.5-4.5)
--- NOTE | 2021-09-13 08:00 | NUR ---
Pt lying down in bed, A&O X4. PICC line on right upper arm CDI. Call light within reach.
--- NOTE | 2021-09-13 16:01 | NUR ---
Inspector Heating And Refrigeration contacted Ruben at [facility] and faxed clinical updates. Ruben advised he still has not been able to reach the [facility] for auth. DELFINA contacted the Red Team caser and left an urgent message. DELFINA updated patient's .
--- NOTE | 2021-09-13 18:15 | NUR ---
Patient had an uneventful day. Worked with therapy and tolerated well. A&Ox3. VSS. IV CDI. Denies pain and discomfort. Patient has a decreased appetite. Denies pain and discomfort. Call light within reach
[2021-09-14 03:57] VITALS: BP 103/66; PULSE 78; TEMP 98.5
--- NOTE | 2021-09-14 05:00 | NUR ---
ASSESSMENT COMPLETE FOR RISK CONTROL MANAGER. PT SEEMED PRETTY BORED AND READY TO GET OUT OF THE HOSPITAL. PT DENIED PAIN, PALPITATIONS, SOB, N,V,D OR DIZZINESS. PT SNACKED, DRINKED MILK AND NAPPED THROUGHT THE NIGHT. CALL WITHIN REACH.
[2021-09-14 06:55] LABS: BASO # 0.1 K/mm3 (0.0-0.2); BASO % 1.6 % (0.0-2.0); EOS # 0.6 K/mm3 (0.0-0.7); EOS % 9.5 % (0.0-4.0); GRAN % 63.2 % (42.2-75.2); LYMPH # 0.4 K/mm3 (1.2-3.4); LYMPH % 6.5 % (20.0-51.0); MEAN CELL VOLUME 95 fl (80.0-100.0); MEAN CORPUSCULAR HGB CONC 33 g/dl (33.0-37.0); MEAN PLATELET VOLUME 11.6 fl (7.4-10.4); MONO # 1.2 K/mm3 (0.1-0.6); MONO % 18.1 % (1.7-9.3); PLATELET COUNT 205 K/mm3 (130-400); RED BLOOD COUNT 2.91 M/mm3 (4.20-5.60); REDCELL DISTRIBUTION WIDTH-CV 18.6 % (11.5-14.5)
[2021-09-14 06:58] LABS: HEMATOCRIT 27.5 % (42.0-52.0); MEAN CORPUSCULAR HEMOGLOBIN 31 pg (27-31)
[2021-09-14 07:11] LABS: CALCIUM 8.1 mg/dL (8.4-10.2); CREATININE, serum 1.67 mg/dL (0.72-1.25); MAGNESIUM 2.4 mg/dL (1.6-2.6); POTASSIUM 4.4 mmol/L (3.5-4.5)
[2021-09-14 07:46] VITALS: BP 104/67; PULSE 76; TEMP 98.4
[2021-09-14 11:30] VITALS: BP 99/67; PULSE 85
--- NOTE | 2021-09-14 14:02 | NUR ---
insole department worker and palliative care RN meet with the patient, patient's daughter and at bedside. Patient verbalizes that he is not interested in doing the cancer treatments anymore stating " i'm not interested in doing that again". Patient and family are informed that the SNF facilities are all providing the feedback that they feel like the patient is hospice appropriate. Patient and family members are educated about home with hospice vs. the hospice house vs. a nursing facility. Informed them that [facility] is able to accept the patient as hospice but room and board is approx.$268 a day. Other alternative is the patient returning home with family support and home health. At this time the family is leaning more towards hospice but information on the agencies and hospice agencies are provided. Agreement made to check in with the family later.
[2021-09-14 15:39] VITALS: BP 108/70; PULSE 68
--- NOTE | 2021-09-14 20:02 | NUR ---
PATIENT VERY TIRED, DAUGHTER APPROCHED NURSE ABOUT POSSIBLY DISCUSSING HOSPICE CARE. DISCUSSED WITH FAMILY, SW, AND PALLIATIVE RN. PATIENT SPOKE WITH THIS RN THIS AFTERNOON, CHOICE TO GO HOME WITH HOSPICE WAS MADE PER PATIENT. MEDS HAVE BEEN REFUSED, PATIENT WANTS NO VITALS "UNLESS TELE IS WONKY" HE JUST WANTS TO "REST AND BE LEFT ALONE". WILL PASS THIS MESSAGE ALONG IN REPORT AND HONOR PATIENT WISHES. COMFORT MEASURES HAVE NOT BEEN INITIATED AT THIS TIME DECISIONS WERE MADE AFTER SW/PC HAD LEFT FOR THE DAY.
--- NOTE | 2021-09-15 04:39 | NUR ---
RESTED THROUGHT THE NIGHT WITHOUT INCIDENT. CALL LIGHT WI REACH. NEEDS ARE MET.
[2021-09-15 07:16] LABS: BASO # 0.1 K/mm3 (0.0-0.2); BASO % 1.9 % (0.0-2.0); EOS # 0.7 K/mm3 (0.0-0.7); EOS % 11.4 % (0.0-4.0); GRAN # 3.4 K/mm3 (1.4-6.5); GRAN % 59.8 % (42.2-75.2); LYMPH # 0.4 K/mm3 (1.2-3.4); LYMPH % 7.4 % (20.0-51.0); MEAN CELL VOLUME 96 fl (80.0-100.0); MEAN CORPUSCULAR HGB CONC 33 g/dl (33.0-37.0); MEAN PLATELET VOLUME 11.2 fl (7.4-10.4); MONO % 18.3 % (1.7-9.3); PLATELET COUNT 195 K/mm3 (130-400); RED BLOOD COUNT 2.86 M/mm3 (4.20-5.60); REDCELL DISTRIBUTION WIDTH-CV 18.3 % (11.5-14.5)
[2021-09-15 07:21] LABS: HEMATOCRIT 27.3 % (42.0-52.0); HEMOGLOBIN 8.9 g/dl (13.5-18.0); MEAN CORPUSCULAR HEMOGLOBIN 31 pg (27-31)
[2021-09-15 07:29] LABS: CALCIUM 8.1 mg/dL (8.4-10.2); CREATININE, serum 1.65 mg/dL (0.72-1.25)
--- NOTE | 2021-09-15 07:30 | NUR ---
Patient is resting in bed, trying to continue sleeping. He refusees to measure VS, states he does not have pain right now. And ref meds. Continue monitoring.
[2021-09-15] MEDS ORDERED: TRANSDERM-0.5 MG/21 TD (10:09)
[2021-09-15] MEDS ORDERED: DULCOLAX S10 MG/SUPP RC (10:09)
[2021-09-15] MEDS ORDERED: SYSTANE 0.4%-0.1 SOL OU (10:09)
[2021-09-15] MEDS ORDERED: ROXANOL 20MG20 MG/ML SL (10:09)
[2021-09-15] MEDS ORDERED: ATIVAN 1MG T1 MG/TAB PO (10:09)
--- NOTE | 2021-09-15 10:33 | NUR ---
Attended rounds with care team. Patient states he wants to go home on hospice. Family deciding on agency. SW aware and will help coordinate d/c today.
--- NOTE | 2021-09-15 10:57 | NUR ---
Follow-up visit; Patient thanked Rattle Leak And Squeak Repairer for continuing to check on him and today for covering him up as he asked and for keeping him in her prayers.
--- NOTE | 2021-09-15 11:08 | NUR ---
Clinical referral faxed to [facility].
--- NOTE | 2021-09-15 15:52 | NUR ---
Assessment Nurse Practitioner collaborated with Palliative RN who advised patient decided to go on comfort care and would like to return home on hospice. DELFINA followed up with patient's who advised she wants to use [facility]. Referral was faxed. DELFINA spoke with Minoo RN at [facility] who advised she spoke with the family and they cannot deliver hospital bed until tomorrow morning at 1000. DELFINA also advised Minoo that a stool riser was needed and Minoo stated that can be secured as well. DELFINA met with patient, patient's , and patient's sons to provide the above update. Patient and family would like to wait until the hospital bed is delivered and discharge tomrrow morning. DELFINA updated RN and Hospitalist. Discharge Plan: Home with family and [facility]
--- NOTE | 2021-09-15 18:03 | NUR ---
Patient and family were provided with discharge instructions, all questions answered. Telemetry discontinued. PICC discontinued by respective area. Pt will be taken by staff via wheelchair to the ER entrance.
== END 2021-09-15 18:06 | disposition hospice, home (50) | DRG 372 ==
LOC: COL.ER 16:37 → MEDICAL 20:44
PROVIDERS: Family Medicine; Internal Medicine; Nurse Practitioner; Physician Assistant; ADMIT Student in an Organized Health Care Education/Training Program
DX: A04.8 Other specified bacterial intestinal infections (principal); K52.1 Toxic gastroenteritis and colitis; N17.9 Acute kidney failure, unspecified; C79.51 Secondary malignant neoplasm of bone; R64 Cachexia; N13.30 Unspecified hydronephrosis; I50.22 Chronic systolic (congestive) heart failure; E87.2 Acidosis; I13.0 Hypertensive heart and chronic kidney disease with heart failure and stage 1 through stage 4 chronic kidney disease, or unspecified chronic kidney disease; E44.0 Moderate protein-calorie malnutrition; I47.1 Supraventricular tachycardia; Z51.5 Encounter for palliative care; D64.81 Anemia due to antineoplastic chemotherapy; C61 Malignant neoplasm of prostate; I25.10 Atherosclerotic heart disease of native coronary artery without angina pectoris; K21.9 Gastro-esophageal reflux disease without esophagitis; E78.5 Hyperlipidemia, unspecified; T45.1X5A Adverse effect of antineoplastic and immunosuppressive drugs, initial encounter; E87.6 Hypokalemia; R77.8 Other specified abnormalities of plasma proteins; E83.42 Hypomagnesemia; E86.0 Dehydration; G72.9 Myopathy, unspecified; R11.2 Nausea with vomiting, unspecified; E87.8 Other disorders of electrolyte and fluid balance, not elsewhere classified; N13.5 Crossing vessel and stricture of ureter without hydronephrosis; I95.9 Hypotension, unspecified; I51.3 Intracardiac thrombosis, not elsewhere classified; Z68.20 Body mass index [BMI] 20.0-20.9, adult
CPT/HCPCS: OP; 99223-AI; 99232-AI; 99233-AI; C1751; C9113; G0378; J0744; J1100; J1644; J2270; J2405; J2550; J3475; J3480; J7030; J7120; P9016